=== PATIENT | male | born 1995 | race Caucasian/White ===

== ENCOUNTER 2017-03-18 20:35 | Emergency (ER) | payer OTHER ==
[2017-03-18 20:43] VITALS: BP 167/83; PULSE 112; RESP 18; TEMP 98.5
--- NOTE | 2017-03-18 21:19 | ED ---
ENT HPI - General Chief complaint: Dental/Oral Stated complaint: abscess tooth Time Seen by Provider: 03/18/17 20:58 Source: patient Mode of arrival: ambulatory Limitations: no limitations - History of Present Illness Initial comments: 22-year-old male patient presents to emergency department today for evaluation of right lower dental pain. Patient states that he has had pain in the area for the last 3 days, he states he has a tooth broken down to the gumline. Patient states that he has had pain in the area before however it had resolved. Patient states he does have insurance and needs to make an appointment with a dentist. Patient denies any recent fever, chills, shortness breath, chest pain , abdominal pain, nausea/vomiting/diarrhea, back pain, numbness, tingling, hematuria, headache, or visual changes, or any other complaints. Denies any difficulty opening his mouth or swallowing. - Related Data Previous Rx's Medication Instructions Recorded Acetaminophen-Codeine 300-30mg 1 tab PO Q6H PRN #15 tablet 03/18/17 [Tylenol #3] Ibuprofen [Motrin] 600 mg PO Q6HR PRN #20 tab 03/18/17 Penicillin V Potassium [Pen Vee K] 500 mg PO QID #40 tab 03/18/17 Allergies Allergy/AdvReac Type Severity Reaction Status Date / Time No Known Allergies Allergy Verified 03/18/17 20:43 Review of Systems ROS Statement: Those systems with pertinent positive or pertinent negative responses have been documented in the HPI. ROS Other: All systems not noted in ROS Statement are negative. Past Medical History Past Medical History: No Reported History History of Any Multi-Drug Resistant Organisms: None Reported Past Surgical History: No Surgical Hx Reported Past Psychological History: Depression Smoking Status: Never smoker Past Alcohol Use History: Occasional Past Drug Use History: None Reported General Exam Limitations: no limitations General appearance: alert, in no apparent distress Eye exam: Present: normal appearance, PERRL, EOMI. Absent: scleral icterus, conjunctival injection, periorbital swelling ENT exam: Present: normal exam, normal oropharynx, mucous membranes moist, other (Broken right tooth #32, dental fracture Fry type II. Surrounding gingival swelling and erythema. No palpable abscess on the gumline.) Neck exam: Present: normal inspection. Absent: tenderness, meningismus, lymphadenopathy Respiratory exam: Present: normal lung sounds bilaterally. Absent: respiratory distress, wheezes, rales, rhonchi, stridor Cardiovascular Exam: Present: regular rate, normal rhythm, normal heart sounds. Absent: systolic murmur, diastolic murmur, rubs, gallop, clicks Neurological exam: Present: alert, oriented X3, CN II-XII intact Psychiatric exam: Present: normal affect, normal mood Skin exam: Present: warm, dry, intact, normal color. Absent: rash Course Vital Signs 03/18/17 20:41 Temperature 98.5 F Pulse Rate 112 H Respiratory 18 Rate Blood Pressure 167/83 O2 Sat by Pulse 100 Oximetry Medical Decision Making - Medical Decision Making 22-year-old male patient presented to emergency department today for evaluation of right lower dental pain. Physical exam did reveal a fractured right tooth # 32. Patient was discharged home with a prescription for penicillin as well as pain medication. Patient instructed to follow up with a dentist as soon as possible. Patient instructed to follow up his primary care physician for recheck in 1-2 days. Instructed to return here immediately for any new, worsening, or concerning symptoms. Patient verbalized understanding and agreed with this plan. Disposition Clinical Impression: Pain, dental, Dental abscess Disposition: HOME SELF-CARE Instructions: Dental Abscess (ED), Toothache (ED) Additional Instructions: Use pain medication as directed. Take ibuprofen for pain control. Complete antibiotic prescription in full. Follow up with dentist as soon as possible. Return immediately for any new, worsening, or concerning symptoms. Prescriptions: Acetaminophen-Codeine 300-30mg [Tylenol #3] 1 tab PO Q6H PRN #15 tablet PRN Reason: Pain Ibuprofen [Motrin] 600 mg PO Q6HR PRN #20 tab PRN Reason: Pain Penicillin V Potassium [Pen Vee K] 500 mg PO QID #40 tab Referrals: Trevon Castillo MD [Primary Care Provider] - 1-2 days Time of Disposition: 21:19
== END 2017-03-18 21:23 | disposition home or self-care (01) ==
LOC: EC 20:35
DX: K04.7 Periapical abscess without sinus (principal)
CPT/HCPCS: 99282

== ENCOUNTER 2018-05-06 02:08 | Emergency (ER) | payer OTHER ==
[2018-05-06 02:29] VITALS: RESP 18
[2018-05-06] MEDS ORDERED: KETOROLAC 30 MG/ML 1 ML VIAL IVP STA (02:51)
[2018-05-06] MEDS ORDERED: SODIUM CHLORIDE 0.9% 1,000 ML IV STA (02:51)
[2018-05-06] MEDS ORDERED: diphenhydrAMINE 50 MG/ML 1 ML VIAL IVP STA (02:52)
[2018-05-06] MEDS ORDERED: METOCLOPRAMIDE 5 MG/ML 2 ML VIAL IVP STA (02:52)
--- NOTE | 2018-05-06 02:58 | ED ---
General Adult HPI - General Source: patient Mode of arrival: ambulatory Limitations: no limitations <Kervin Gilbert - Last Filed: 05/06/18 02:57> <Tyson Peterson - Last Filed: 05/06/18 12:18> - General Chief complaint: Psychiatric Symptoms Stated complaint: headache/vision loss - History of Present Illness Initial comments: Dictation was produced using [employer] dictation software. please excuse any grammatical, word or spelling errors. Chief Complaint: 33-year-old male past medical history of aggressive behavior and homicidal ideation presents with headache and homicidal ideation. History of Present Illness: Patient is a 23-year-old male with past medical history of homicidal ideation presents with feelings of aggression and homicidal ideation. Patient has no clear person of who he wants to hurt. He does report that he has a plan of intent. Patient has had this issue in the past. Patient denies any overt psychiatric history. He has had suicide attempt in the past as well. Patient also complaining of a migraine headache. Patient has history of headaches. This headache is not different than usual. Denies any thunderclap characteristic. Denies as being the worse headache of his life. No neurologic deficits. The ROS documented in this emergency department record has been reviewed and confirmed by me. Those systems with pertinent positive or negative responses have been documented in the HPI. All other systems are other negative and/or noncontributory. (Kervin Gilbert) - Related Data Previous Rx's Medication Instructions Recorded FLUoxetine HCL [PROzac] 40 mg PO DAILY #30 cap 08/01/17 OLANZapine [ZyPREXA] 20 mg PO HS #30 tab 08/01/17 Allergies Allergy/AdvReac Type Severity Reaction Status Date / Time No Known Allergies Allergy Verified 05/06/18 02:29 Review of Systems ROS Other: All systems not noted in ROS Statement are negative. <Kervin Gilbert - Last Filed: 05/06/18 02:57> ROS Other: All systems not noted in ROS Statement are negative. <Tyson Peterson - Last Filed: 05/06/18 12:18> ROS Statement: Those systems with pertinent positive or pertinent negative responses have been documented in the HPI. Past Medical History Past Medical History: No Reported History History of Any Multi-Drug Resistant Organisms: None Reported Past Surgical History: No Surgical Hx Reported Past Anesthesia/Blood Transfusion Reactions: No Reported Reaction Past Psychological History: Depression Smoking Status: Former smoker Past Alcohol Use History: None Reported Past Drug Use History: Marijuana - Past Family History Mother Additional Family Medical History / Comment(s): "Chemical Imbalance." Father Family Medical History: No Reported History <Kervin Gilbert - Last Filed: 05/06/18 02:57> General Exam Limitations: no limitations <Kervin Gilbert - Last Filed: 05/06/18 02:57> <Tyson Peterson - Last Filed: 05/06/18 12:18> - General Exam Comments Initial Comments: PHYSICAL EXAM: General Impression: Alert and oriented x3, not in acute distress HEENT: Normocephalic atraumatic, extra-ocular movements intact, pupils equal and reactive to light bilaterally, mucous membranes moist. Cardiovascular: Heart regular rate and rhythm, S1&S2 audible, no murmurs, rubs or gallops Chest: Lungs clear to auscultation bilaterally, no rhonchi, no wheeze, no rales Abdomen: Bowel sounds present, abdomen soft, non-tender, non-distended, no organomegaly Musculoskeletal: Pulses present and equal in all extremities, no peripheral edema Motor: Power 5/5 bilaterally, no focal deficits noted Neurological: CN II-XII grossly intact, no focal motor or sensory deficits noted Skin: Intact with no visualized rashes Psych: Agitated (Kervin Gilbert) Vital Signs 05/06/18 05/06/18 02:23 08:05 Temperature 98.6 F Pulse Rate 80 77 Respiratory 18 18 Rate Blood Pressure 119/63 149/66 O2 Sat by Pulse 99 99 Oximetry Medical Decision Making - Lab Data Result diagrams: 05/06/18 03:20 05/06/18 07:54 <Tyson Peterson - Last Filed: 05/06/18 12:18> - Medical Decision Making ED course: 33-year-old male with homicidal ideation presents with aggressive behavior. Vital signs upon arrival are within normal limits. Blood alcohol test is 0. Patient has history of suicidal ideation and homicidal ideation the past. Patient given headache cocktail. He is otherwise medically cleared for EPS evaluation. Patient's girlfriend reports that patient has been grandiose ideation. According to girlfriend patient has been saying that he has a relationship with God and special martinez. (Kervin Gilbert) - Lab Data Lab Results 05/06/18 05/06/18 05/06/18 Range/Units 03:20 03:56 07:54 WBC 5.1 (3.8-10.6) k/uL RBC 4.75 (4.30-5.90) m/uL Hgb 13.1 (13.0-17.5) gm/dL Hct 38.9 L (39.0-53.0) % MCV 81.8 (80.0-100.0) fL MCH 27.6 (25.0-35.0) pg MCHC 33.8 (31.0-37.0) g/dL RDW 13.0 (11.5-15.5) % Plt Count 196 (150-450) k/uL Neutrophils % 62 % Lymphocytes % 21 % Monocytes % 13 % Eosinophils % 1 % Basophils % 0 % Neutrophils # 3.1 (1.3-7.7) k/uL Lymphocytes # 1.0 (1.0-4.8) k/uL Monocytes # 0.7 (0-1.0) k/uL Eosinophils # 0.1 (0-0.7) k/uL Basophils # 0.0 (0-0.2) k/uL Sodium 140 (137-145) mmol/L Potassium 3.8 (3.5-5.1) mmol/L Chloride 108 H (98-107) mmol/L Carbon Dioxide 24 (22-30) mmol/L Anion Gap 8 mmol/L BUN 14 (9-20) mg/dL Creatinine 0.63 L (0.66-1.25) mg/dL Est GFR (CKD-EPI)AfAm >90 (>60 ml/min/1.73 sqM) Est GFR (CKD-EPI)NonAf >90 (>60 ml/min/1.73 sqM) Glucose 91 (74-99) mg/dL Calcium 8.5 (8.4-10.2) mg/dL Total Bilirubin 0.4 (0.2-1.3) mg/dL AST 40 (17-59) U/L ALT 37 (21-72) U/L Alkaline Phosphatase 57 (38-126) U/L Total Protein 6.4 (6.3-8.2) g/dL Albumin 3.6 (3.5-5.0) g/dL Urine Opiates Screen Not Detected (NotDetected) Ur Oxycodone Screen Not Detected (NotDetected) Urine Methadone Screen Not Detected (NotDetected) Ur Propoxyphene Screen Not Detected (NotDetected) Ur Barbiturates Screen Not Detected (NotDetected) U Tricyclic Antidepress Not Detected (NotDetected) Ur Phencyclidine Scrn Not Detected (NotDetected) Ur Amphetamines Screen Not Detected (NotDetected) U Methamphetamines Scrn Not Detected (NotDetected) U Benzodiazepines Scrn Not Detected (NotDetected) Urine Cocaine Screen Not Detected (NotDetected) U Marijuana (THC) Screen Not Detected (NotDetected) Disposition <Kervin Gilbert - Last Filed: 05/06/18 02:57> <Tyson Peterson - Last Filed: 05/06/18 12:18> Clinical Impression: Depression, Homicidal ideation Disposition: TRANSFER TO PSYCH HOSP/UNIT Condition: Stable Referrals: Trevon Castillo MD [Primary Care Provider] - 1-2 days
[2018-05-06 05:16] LABS: Amphetamine Screen,Urine Not Detected (NotDetected); Barbiturate Screen,Urine Not Detected (NotDetected); Benzodiazepines Screen,Urine Not Detected (NotDetected); Cocaine Screen,Urine Not Detected (NotDetected); Methadone Screen, Urine Not Detected (NotDetected); Opiate Screen,Urine Not Detected (NotDetected); Oxycodone Screen, Urine Not Detected (NotDetected); Phencyclidine Screen,Urine Not Detected (NotDetected); Tricyclic Antidepressant,Urine Not Detected (NotDetected); Urn Cannabinoid Scrn Not Detected (NotDetected)
[2018-05-06 08:01] LABS: Basophils % (A) 0 %; Eosinophils # (A) 0.1 k/uL (0-0.7); Eosinophils % (A) 1 %; HCT 38.9 % (39.0-53.0); HGB 13.1 gm/dL (13.0-17.5); Lymphocytes % (A) 21 %; MCH 27.6 pg (25.0-35.0); MCHC 33.8 g/dL (31.0-37.0); MCV 81.8 fL (80.0-100.0); Mean Platelet Volume 8.6; Monocytes # (A) 0.7 k/uL (0-1.0); Monocytes % (A) 13 %; Neutrophils # (A) 3.1 k/uL (1.3-7.7); Neutrophils % (A) 62 %; Platelet Count 196 k/uL (150-450); RBC 4.75 m/uL (4.30-5.90); WBC 5.1 k/uL (3.8-10.6)
[2018-05-06 08:22] LABS: ALT 37 U/L (21-72); AST 40 U/L (17-59); Albumin 3.6 g/dL (3.5-5.0); Alkaline Phosphatase 57 U/L (38-126); Anion Gap 8 mmol/L; Blood Urea Nitrogen 14 mg/dL (9-20); Calcium 8.5 mg/dL (8.4-10.2); Carbon Dioxide 24 mmol/L (22-30); Chloride 108 mmol/L (98-107); Glucose 91 mg/dL (74-99); Potassium 3.8 mmol/L (3.5-5.1); Sodium 140 mmol/L (137-145); Total Bilirubin 0.4 mg/dL (0.2-1.3); Total Protein 6.4 g/dL (6.3-8.2)
--- NOTE | 2018-05-06 12:19 | ED ---
Medical Decision Making - Medical Decision Making The patient will be transferred to [facility] for inpatient psychiatric care. He has been resting comfortably throughout the morning and early afternoon - Lab Data Result diagrams: 05/06/18 03:20 05/06/18 07:54 Lab Results 05/06/18 05/06/18 05/06/18 Range/Units 03:20 03:56 07:54 WBC 5.1 (3.8-10.6) k/uL RBC 4.75 (4.30-5.90) m/uL Hgb 13.1 (13.0-17.5) gm/dL Hct 38.9 L (39.0-53.0) % MCV 81.8 (80.0-100.0) fL MCH 27.6 (25.0-35.0) pg MCHC 33.8 (31.0-37.0) g/dL RDW 13.0 (11.5-15.5) % Plt Count 196 (150-450) k/uL Neutrophils % 62 % Lymphocytes % 21 % Monocytes % 13 % Eosinophils % 1 % Basophils % 0 % Neutrophils # 3.1 (1.3-7.7) k/uL Lymphocytes # 1.0 (1.0-4.8) k/uL Monocytes # 0.7 (0-1.0) k/uL Eosinophils # 0.1 (0-0.7) k/uL Basophils # 0.0 (0-0.2) k/uL Sodium 140 (137-145) mmol/L Potassium 3.8 (3.5-5.1) mmol/L Chloride 108 H (98-107) mmol/L Carbon Dioxide 24 (22-30) mmol/L Anion Gap 8 mmol/L BUN 14 (9-20) mg/dL Creatinine 0.63 L (0.66-1.25) mg/dL Est GFR (CKD-EPI)AfAm >90 (>60 ml/min/1.73 sqM) Est GFR (CKD-EPI)NonAf >90 (>60 ml/min/1.73 sqM) Glucose 91 (74-99) mg/dL Calcium 8.5 (8.4-10.2) mg/dL Total Bilirubin 0.4 (0.2-1.3) mg/dL AST 40 (17-59) U/L ALT 37 (21-72) U/L Alkaline Phosphatase 57 (38-126) U/L Total Protein 6.4 (6.3-8.2) g/dL Albumin 3.6 (3.5-5.0) g/dL Urine Opiates Screen Not Detected (NotDetected) Ur Oxycodone Screen Not Detected (NotDetected) Urine Methadone Screen Not Detected (NotDetected) Ur Propoxyphene Screen Not Detected (NotDetected) Ur Barbiturates Screen Not Detected (NotDetected) U Tricyclic Antidepress Not Detected (NotDetected) Ur Phencyclidine Scrn Not Detected (NotDetected) Ur Amphetamines Screen Not Detected (NotDetected) U Methamphetamines Scrn Not Detected (NotDetected) U Benzodiazepines Scrn Not Detected (NotDetected) Urine Cocaine Screen Not Detected (NotDetected) U Marijuana (THC) Screen Not Detected (NotDetected) Disposition Clinical Impression: Depression, Homicidal ideation Disposition: TRANSFER TO PSYCH HOSP/UNIT Condition: Stable Referrals: Trevon Castillo MD [Primary Care Provider] - 1-2 days
[2018-05-06] MEDS ORDERED: SENNOSIDES 8.6 MG TAB PO STA (13:23)
[2018-05-06 14:49] VITALS: BP 133/68; PULSE 72; TEMP 99
== END 2018-05-06 14:50 ==
LOC: EC 02:08
DX: F32.9 Major depressive disorder, single episode, unspecified (principal); R45.850 Homicidal ideations; R51 Headache; H54.7 Unspecified visual loss; Z87.891 Personal history of nicotine dependence
CPT/HCPCS: 99285; 96374; 96375 ×2; 96361; 82075; 36415; 80053; 85025; 80306; J1200; J2765; J1885